=== PATIENT | male | born 1990 | race Caucasian/White ===

== ENCOUNTER 2017-01-30 13:02 | Emergency (ER) | payer SELFPAY ==
[2017-01-30] MEDS ORDERED: ALBUTEROL/IPRATROPIUM 2.5/0.5 MG 3 ML/EACH DOSE ONE (13:42)
--- NOTE | 2017-01-30 14:01 | RAD ---
CHEST 2 VIEWS HISTORY: Chest pain. Frontal and lateral chest radiographs dated 01/30/2017. COMPARISON: None. FINDINGS: FOCAL AIRSPACE OPACITY: No gross airspace consolidation. PLEURAL EFFUSION: None. CARDIOMEDIASTINAL SILHOUETTE: Nonenlarged. PNEUMOTHORAX: None identified. OSSEOUS STRUCTURES: Evidence of remote left ninth rib fracture. Minor lower thoracic disc degeneration. IMPRESSION: No acute cardiopulmonary process noted.
[2017-01-30 14:23] LABS: ABSOLUTE NEUTROPHIL COUNT 7.1 K/mm3 (1.8-7.7); BASO % 0.4 % (0.2-1.0); EOS # 0.1 (0.0-0.5); EOS % 1.4 % (0.9-2.9); HEMATOCRIT 37.9 % (32.0-52.0); HEMOGLOBIN 13.1 gm/l (14.0-18.0); IMM NEUT% 0.2 % (0-1); LYMPH # 2.2 (1.0-4.8); LYMPH % 21.6 % (15-45); MEAN CELL VOLUME 85.7 fl (80.0-94.0); MEAN CORPUSCULAR HEMOGLOBIN 29.6 pg (27.0-31.0); MEAN CORPUSCULAR HGB CONC 34.6 g/dl (33.0-37.0); MEAN PLATELET VOLUME 9.3 fl (7.4-10.4); MONO # 0.8 (0.0-0.8); MONO % 7.9 % (4-12); NEUT % 68.5 % (43-75); PLATELET COUNT 272 K/mm3 (130-400); RED CELL DISTRIBUTION WIDTH 12.6 % (11.5-14.5)
[2017-01-30 14:46] LABS: ALB/GLOB RATIO 1.4 (>1.0); CALCIUM 9.3 mg/dL (8.6-10.3)
[2017-01-30 15:00] LABS: CKMB ISOENZYME 4.3 ng/ml (0.6-6.3)
[2017-01-30 15:06] LABS: TROPONIN I < 0.01 ng/ml (0.0-0.06)
== END 2017-01-30 15:50 | disposition home or self-care (01) ==
LOC: ED 13:02
DX: R06.02 Shortness of breath (principal); R11.0 Nausea; F17.210 Nicotine dependence, cigarettes, uncomplicated